=== PATIENT | male | born 2000 | race Caucasian/White ===

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

== ENCOUNTER 2019-05-29 22:26 | Emergency (ER) | payer OTHER ==
[~2019-05-29] VITALS: Ht 167.6 cm; Wt 63.5 kg
--- NOTE | ~2019-05-29 | EKG ---
[place], [place] ELECTROCARDIOGRAM REPORT NAME: YUDITH ORTEGA UNIT #: [id number] ROOM: DOCTOR: EPIPHANY DRAFT REPORT BIRTHDATE: [birth year] 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
[~2019-05-29 22:26] MED LIST changes: +AMOXICILLIN500 M2 PO
[2019-05-29 23:21] LABS: BASO % 0.5 % (0.0-1.0); EOS # 0.1 10*3/uL (0.0-0.4); EOS % 1.3 % (1.0-4.0); HEMATOCRIT 39.2 % (42.0-52.0); HEMOGLOBIN 13.3 g/dl (14.0-18.0); LYMPH # 1.6 10*3/uL (1.3-4.4); LYMPH % 39.4 % (27.0-41.0); MEAN CELL VOLUME 87.9 fl (80.0-94.0); MEAN CORPUSCULAR HGB 29.8 pg (27.0-31.0); MEAN CORPUSCULAR HGB CONC 33.9 g/dl (33.0-37.0); MEAN PLATELET VOLUME 10.2 fl (9.6-12.3); MONO # 0.3 10*3/uL (0.1-1.0); MONO % 8.3 % (3.0-9.0); NEUT % 50.2 % (47.0-73.0); PLATELET COUNT AUTOMATED 172 10*3/uL (130-400); RED BLOOD COUNT 4.46 10*6/uL (4.50-5.90); RED CELL DISTRI WIDTH 11.9 % (0-14.5)
[2019-05-29 23:31] LABS: INTERNATIONAL NORM RATIO 1.1 (2.0-3.5)
[2019-05-29 23:39] LABS: ALBUMIN 4.2 gm/dl (3.1-4.5); ALKALINE PHOSPHATASE 106 U/L (45-117); BUN 14 mg/dl (7-24); CHLORIDE 109 mmol/L (98-107); CREATININE 1.03 mg/dL (0.70-1.30); LIPASE 75 U/L (73-393); POTASSIUM 3.5 mmol/L (3.5-5.1); SGOT/AST 13 IU/L (3-35); SGPT/ALT 24 U/L (12-78); SODIUM 143 mmol/L (136-145)
[2019-05-29 23:41] LABS: TROPONIN I < 0.015 ng/ml (<0.045)
== END 2019-05-30 00:16 | disposition home or self-care (01) ==
LOC: ED 22:26
PROVIDERS: Physician Assistant
DX: R07.89 Other chest pain (principal); R10.12 Left upper quadrant pain; Z79.2 Long term (current) use of antibiotics